=== PATIENT | female | born 1935 | race Two or more races ===

== ENCOUNTER 2022-04-29 19:26 | Emergency (ER) | payer OTHER, BC ==
[~2022-04-29] VITALS: Ht 160 cm; Wt 77.1 kg
[2022-04-29] MEDS ORDERED: AMLODIPINE BESYL5 MG PO (19:39)
[2022-04-29] MEDS ORDERED: BISOPROLOL FUMA10 MG PO (19:39)
[2022-04-29] MEDS ORDERED: NORVASC2.5 M1 PO (19:40)
[2022-05-01] MEDS ORDERED: COZAAR25 MG PO (01:01)
[2022-05-01] MEDS ORDERED: GLUMETZA500 MG PO (01:01)
[2022-05-01] MEDS ORDERED: GLIMEPIRIDE1 MG (01:01)
[2022-05-01] MEDS ORDERED: NORVASC2.5 M1 PO (01:02)
== END 2022-04-30 02:13 | disposition home or self-care (01) ==
LOC: ER 19:26
DX: G45.9 Transient cerebral ischemic attack, unspecified (principal); T50.905A Adverse effect of unspecified drugs, medicaments and biological substances, initial encounter; I10 Essential (primary) hypertension; E11.65 Type 2 diabetes mellitus with hyperglycemia; Z79.4 Long term (current) use of insulin

== ENCOUNTER 2022-05-01 00:30 | Inpatient (IN) | payer OTHER, BC ==
[~2022-05-01] VITALS: Ht 162.6 cm; Wt 76.7 kg
[~2022-05-01 00:30] MED LIST: AMLODIPINE BESYL5 MG PO; BISOPROLOL FUMA10 MG PO; NORVASC2.5 M1 PO
[2022-05-01] MEDS ORDERED: GLIMEPIRIDE1 MG (01:01)
[2022-05-01] MEDS ORDERED: GLUMETZA500 MG PO (01:01)
[2022-05-01] MEDS ORDERED: COZAAR25 MG PO (01:01)
[2022-05-01] MEDS ORDERED: NORVASC2.5 M1 PO (01:02)
== END 2022-05-05 14:21 | disposition home or self-care (01) | DRG 68 ==
LOC: ER 00:30 → SEC-K 11:54 → MEDI 05-02 10:55
PROVIDERS: ADMIT Specialist; ATTEND Specialist
PROC: 4A12X4Z Monitoring of Cardiac Electrical Activity, External Approach (ICD-10-PCS; principal; 2022-05-01)
DX: I65.22 Occlusion and stenosis of left carotid artery (principal); I11.9 Hypertensive heart disease without heart failure; E11.9 Type 2 diabetes mellitus without complications; F03.90 Unspecified dementia, unspecified severity, without behavioral disturbance, psychotic disturbance, mood disturbance, and anxiety; H91.90 Unspecified hearing loss, unspecified ear; Z79.84 Long term (current) use of oral hypoglycemic drugs
CPT/HCPCS: 70544